=== PATIENT | male | born 1985 | race Caucasian/White ===

== ENCOUNTER 2021-05-17 08:24 | Emergency (ER) | payer OTHER, SELFPAY ==
[2021-05-17] VITALS (9 sets, daily range): BP systolic 104–124; BP diastolic 67–78; PULSE 65–84; RESP 16–24; TEMP 36.8–36.9; O2SAT 99–100
--- NOTE | 2021-05-17 08:24 | ECG_ITS ---
APPROVED REPORT Exam: Resting ECG HR:82 bpm ECG Measurements Heart Rate 82 AXES MS 168 P 64 QRSd 86 QRS 81 QT 358 T 28 QTc 418 Conclusion Normal sinus rhythm Normal ECG Electronically signed by : Kenneth Aguilera MD 05/17/2021 21:00:48
--- NOTE | 2021-05-17 08:37 | XR_ITS ---
PROCEDURE: XR CHEST 2V CLINICAL HISTORY: chest pain COMPARISON: No exams were available for comparison FINDINGS: The cardiomediastinal silhouette and pulmonary vascularity are within normal limits. The lungs are clear without infiltrates, suspicious nodules, or pleural effusions. No acute bony abnormalities. IMPRESSION: No acute findings. Dictated by: Jason Reyes MD 05/17/2021 10:44 Jason Reyes MD in [place] 05/17/2021 10:44
--- NOTE | 2021-05-17 08:46 | [facility].EDGENADL ---
ED Disposition Clinical Impression: Atypical chest pain Disposition: Home, Self-Care Condition on Discharge: Good Instructions: DI for Atypical Chest Pain Additional Instructions: Additional instructions for CHEST PAIN: See your physician as soon as possible for further evaluation. Return immediately if worsening chest pain, vomiting, shortness of breath, fever, coughing of blood. Referrals: Provider,Referral, [Primary Care Provider] - - Critical Care Critical Care Time: No Attestation: On , the high probability of a clinically significant, sudden or life threatening deterioration of the following system(s) required my full and direct attention, intervention and personal management. The time I documented below is in addition to time spent performing reported procedures but includes the following listed in this critical care notation. Medical Decision Making - [employer] Inquiry Pt receiving controlled substance: No Vital Signs: 05/17/21 08:30 05/17/21 09:15 05/17/21 09:30 Temperature 98.2 F Temperature Source Oral Pulse Rate 68 69 Pulse Rate [Left Radial] 84 Respiratory Rate 18 24 21 Blood Pressure 112/68 112/67 Blood Pressure [Right Arm] 124/78 Blood Pressure Mean 81 Blood Pressure Mean [Right Arm] 93 02 Sat by Pulse Oximetry 99 100 100 Oxygen Delivery Method Room Air 05/17/21 10:00 05/17/21 10:30 05/17/21 11:00 Temperature Temperature Source Pulse Rate 77 70 72 Pulse Rate [Left Radial] Respiratory Rate 18 18 18 Blood Pressure 108/71 L 117/73 113/70 Blood Pressure [Right Arm] Blood Pressure Mean 79 80 81 Blood Pressure Mean [Right Arm] 02 Sat by Pulse Oximetry 100 100 100 Oxygen Delivery Method Room Air Room Air Room Air 05/17/21 11:30 05/17/21 12:00 Temperature Temperature Source Pulse Rate 72 68 Pulse Rate [Left Radial] Respiratory Rate 18 18 Blood Pressure 122/69 104/69 L Blood Pressure [Right Arm] Blood Pressure Mean 79 79 Blood Pressure Mean [Right Arm] 02 Sat by Pulse Oximetry 100 100 Oxygen Delivery Method Room Air - Lab Data Lab Results 05/17/21 08:38: SARS-CoV-2 (PCR) Not detected, Influenza A Untype (PCR) Not detected, Influenza Type B (PCR) Not detected 05/17/21 08:54: Urine Color Yellow, Urine Appearance Clear, Urine pH 7.5, Ur Specific [place] 1.020, Urine Protein Negative, Urine Glucose (UA) Negative, Urine Ketones Negative, Urine Blood Negative, Urine Nitrate Negative, Urine Bilirubin Negative, Urine Urobilinogen 0.2, Ur Leukocyte Esterase Negative, Urine RBC None, Urine WBC 3-5, Ur Squamous Epith Cells Occasional, Urine Bacteria None 05/17/21 08:54: WBC 4.9, RBC 5.08, Hgb 16.3, Hct 46.2, MCV 90.9, MCH 32.0 H, MCHC 35.2, RDW 12.2, Plt Count 238, MPV 8.4, Neut % (Auto) 53.5, Lymph % (Auto) 40.0, [place] % (Auto) 5.2, Eos % (Auto) 0.9, Baso % (Auto) 0.4, Neut # (Auto) 2.6, Lymph # (Auto) 2.0, [place] # (Auto) 0.3, Eos # (Auto) 0.0, Baso # (Auto) 0.0 05/17/21 08:54: Sodium 138, Potassium 3.8, Chloride 101, Carbon Dioxide 29, Anion Gap 11.8, BUN 13, Creatinine 0.80, Estimated Creat Clear 116, Estimated GFR 110, Est GFR ( Amer) 133, Glucose 97, Calcium 9.3, Troponin I < 0.01 05/17/21 08:54: Lipase 36 05/17/21 08:54: Total Bilirubin 1.0, Direct Bilirubin 0.0, Conjugated Bilirubin 0.0, Indirect Bilirubin 1.0 H, Unconjugated Bilirubin 1.0, AST 26, ALT 17, Alkaline Phosphatase 57, Total Protein 7.2, Albumin 4.5 05/17/21 11:40: Troponin I < 0.01 Result diagrams: 05/17/21 08:54 05/17/21 08:54 Orders (Tests/Meds): ED MEDICATIONS Generic Name Dose Route Start Last Admin Trade Name Freq PRN Reason Stop Dose Admin Sodium Chloride 8 ml 05/17/21 08:49 Sodium Chloride 0.9% 10ml Vial IV 06/16/21 08:48 NEEDED PRN dilute pepcid Discontinued Medications Generic Name Dose Route Start Last Admin Trade Name Freq PRN Reason Stop Dose Admin Aspirin 324 mg 05/17/21 08:39 05/17/21 08:57 Aspirin 81mg Chewable Tablet
[2021-05-17 09:25] LABS: Microscopic, Urine URINE MICROSCOPIC (MICROSCOPIC)
[2021-05-17 09:28] LABS: Basophils % 0.4 % (0.1-2.0); Eosinophils % 0.9 % (0.1-12.0); Hematocrit 46.2 % (42.0-52.0); Hemoglobin 16.3 g/dL (14.1-18.0); Mean Corpuscular HGB Conc 35.2 g/dL (31.8-35.4); Mean Corpuscular Volume 90.9 fl (80-94); Mean Platelet Volume 8.4 fl (7.4-10.4); Monocytes # 0.3 K/mm3 (0.1-1.0); Monocytes % 5.2 % (1.7-9.3); Neutrophils # 2.6 K/mm3 (1.8-7.8); Neutrophils % 53.5 % (37.0-80.0); Platelet Count 238 K/mm3 (142-424); Red Blood Count 5.08 M/mm3 (4.60-6.20); Red Cell Distribution Width 12.2 % (11.5-17.5); White Blood Count 4.9 K/mm3 (4.8-10.8)
[2021-05-17 09:31] LABS: Coronavirus 19, PCR Not Detected (NotDetected); Influenza A, PCR Not Detected (NotDetected); Influenza B, PCR Not Detected (NotDetected)
[2021-05-17 09:37] LABS: Appearance,Urine CLEAR (Clear); Bilirubin,Urine Negative (Negative); Blood, Urine Negative (Negative); Color,Urine YELLOW (Yellow); Glucose,Urine (UA) Negative (Negative); Ketones,Urine Negative (Negative); Leukocyte Esterase,Urine Negative (Negative); Nitrate,Urine Negative (Negative); PH,Urine 7.5 (5.0-8.5); Protein,Urine Negative (Negative); Urobilinogen,Urine 0.2 EU/dl (0.2)
[2021-05-17 09:42] LABS: Anion Gap 11.8 mEq/L (5-15); Blood Urea Nitrogen 13 mg/dl (9-20); Calcium 9.3 mg/dl (8.4-10.2); Carbon Dioxide 29 mmol/L (22.0-30.0); Chloride 101 mmol/L (98-107); Creatinine Clearance Estimated 116 mL/min (50-200); Estimated Glomerular Filt Rate 110 ml/min (>60); GFR (African American) 133 ML/MIN (>60); Glucose 97 mg/dl (74-100); Lipase 36 U/L (23-300); Potassium 3.8 mmoL/L (3.5-5.1); Sodium 138 mmol/L (136-145)
[2021-05-17 09:43] LABS: Alanine Aminotransferase 17 U/L (12-78); Albumin Level 4.5 g/dl (3.5-5.0); Alkaline Phosphatase 57 U/L (38-126); Aspartate Amino Transferase 26 U/L (17-59); Total Protein,Serum 7.2 g/dl (6.3-8.2)
[2021-05-17 09:50] LABS: Squamous Epithelial Cell,Urine Occasional #/hpf (0-5)
[2021-05-17 09:55] LABS: Troponin I < 0.01 ng/ml (0.00-0.034)
--- NOTE | 2021-05-17 11:42 | PC.NURSE ---
lab [facility] 2nd trop
[2021-05-17 12:12] LABS: Troponin I < 0.01 ng/ml (0.00-0.034)
== END 2021-05-17 13:03 | disposition home or self-care (01) ==
PROVIDERS: Emergency Provider Emergency Medicine
DX: R07.89 Other chest pain (principal); R10.33 Periumbilical pain
CPT/HCPCS: 36415; 71046; 80048; 80076; 81001; 83690; 84484; 85025; 93005; 96374; 99284; C9803; U0003; U0005

== ENCOUNTER 2022-03-20 16:29 | Emergency (ER) | payer OTHER, SELFPAY ==
[2022-03-20 19:21] VITALS: BP 0/0; PULSE 0; RESP 0; TEMP -17.7; TEMP 0; O2SAT 0
== END 2022-03-20 19:22 | disposition left against medical advice (07) ==
LOC: UTC 17:24
PROVIDERS: Emergency Provider Nurse Practitioner
DX: R42 Dizziness and giddiness (principal); Z53.21 Procedure and treatment not carried out due to patient leaving prior to being seen by health care provider